=== PATIENT | female | born 1965 | race Caucasian/White ===

== ENCOUNTER 2017-08-28 07:28 | Emergency (ER) | payer BC, OTHER ==
[2017-08-28 07:47] VITALS: BP 143/71
--- NOTE | 2017-08-28 08:53 | RAD ---
INDICATION: Left rib injury. TECHNIQUE: 4 views of the left ribs were obtained. FINDINGS: There are nondisplaced fractures of the fifth through seventh anterolateral left ribs. IMPRESSION: NONDISPLACED FRACTURE OF THE LEFT FIFTH THROUGH SEVENTH RIBS.
--- NOTE | 2017-08-28 08:55 | RAD ---
INDICATION: Chest and rib pain COMPARISON: Chest x-ray April 11, 2015 TECHNIQUE: PA and lateral dual-energy views were obtained. FINDINGS: Bones/Soft Tissues: There are no acute bony findings on the chest radiograph. Please refer also to detailed rib series. Cardiomediastinal: The cardiomediastinal silhouette is normal. Lungs: There are no infiltrates. Pleura: There are no pleural effusions. Other: None IMPRESSION: NO PNEUMOTHORAX. LUNGS CLEAR. REFER ALSO TO DETAILED RIB SERIES.
--- NOTE | 2017-10-02 09:20 | UC ---
Vipin Handley Stephanie, scribed for Antonieta Gill MD on 08/28/17 at 0808 . General HPI - HPI Summary HPI Summary: The pt is a 51 y/o F presenting to with c/o L sided rib pain that began on s/p fall. She states she became dizzy and fell and landed on her ribs. The pt fell again 08/25/17. She denies LOC, neck trauma, hematuria, head trauma, urinary symptoms, rash, ear pain and palpitations. She states she has not had a BM in a couple of days. - History of Current Complaint Chief Complaint: UCTrauma Stated Complaint: SIDE INJURY Time Seen by Provider: 08/28/17 07:54 Hx Obtained From: Patient Onset/Duration: Sudden Onset, Lasting Weeks - 1.5, Still Present Timing: Constant Current Severity: Moderate Pain Intensity: 7 Associated Signs & Symptoms: Positive: Dizziness - Allergy/Home Medications Allergies/Adverse Reactions: Allergies Allergy/AdvReac Type Severity Reaction Status Date / Time No Known Allergies Allergy Verified 08/28/17 07:37 Home Medications: Home Medications Ibuprofen TAB* [Advil TAB*] 800 mg PO Q8H PRN 08/28/17 [History Confirmed ] Lisinopril TAB* [Prinivil TAB*] 10 mg PO DAILY 08/28/17 [History Confirmed 08/28] Varenicline Tartrate [Chantix] 1 mg PO DAILY 08/28/17 [History Confirmed ] PMH/Surg Hx/FS Hx/Imm Hx Previously Healthy: No Cardiovascular History: Hypertension - Surgical History Surgical History: Yes Surgery Procedure, Year, and Place: TUBAL LIGATION, COLONOSCOPY - Family History Known Family History: Positive: Cardiac Disease, Diabetes - Social History Occupation: Employed Full-time Lives: With Family Alcohol Use: None Substance Use Type: None Smoking Status (MU): Light Every Day Tobacco Smoker Type: Cigarettes Amount Used/How Often: "a couple of cigs a day" Have You Smoked in the Last Year: Yes - Immunization History Vaccination Up to Date: No Review of Systems Constitutional: Negative Skin: Negative Eyes: Other - see HPI ENT: Negative Respiratory: Negative Cardiovascular: Negative Gastrointestinal: Negative Genitourinary: Negative Motor: Negative Neurovascular: Negative Musculoskeletal: Other: - See HPI Neurological: Other - See HPI Psychological: Negative All Other Systems Reviewed And Are Negative: Yes Physical Exam - Summary Physical Exam Summary: Appearance: Well-Nourished Eye Exam: Normal ENT Exam: Normal Neck: Normal, No adenopathy appreciated Respiratory Exam: Normal, no dyspnea, no tachypnea, normal respiratory rate Chest non-tender, Lungs clear, Normal breath sounds, No respiratory distress Cardiovascular Exam: Normal Cardiovascular: Heart rate regular, good general skin color, good capillary refill RRR, No Murmur, Pulses Normal - sitting up. heart rate correlates w left radial pulse, Brisk Capillary Refill Abdominal Exam: Normal Abdomen Description: Nontender, No Organomegaly, Soft Bowel Sounds: Present Musculoskeletal Exam: Strength Intact, no CVA tenderness, L posterior and L anterior diffuse rib tenderness Neurological Exam: Normal: nonfocal, grossly intact Psychological Exam: Normal: conversing easily and appropriately Skin Exam: Normal: no visible or reported rash Triage Information Reviewed: Yes Vital Signs: Initial Vital Signs Temp 97.3 F 08/28/17 07:39 Pulse 68 08/28/17 07:39 Resp 18 08/28/17 07:39 BP 143/71 08/28/17 07:39 Pulse Ox 95 08/28/17 07:39 Vital Signs Reviewed: Yes Diagnostics - Radiology Ribs XRay Xray Interpretation: Positive (See Comments) Radiology Interpretation Completed By: Radiologist - NONDISPLACED FRACTURE OF THE LEFT FIFTH THROUGH SEVENTH RIBS. physician has reviewed this report. CXR Xray Interpretation: No Acute Changes Radiology Interpretation Completed By: Radiologist - NO PNEUMOTHORAX. LUNGS CLEAR. REFER ALSO TO DETAILED RIB SERIES. physician has reviewed this report. Re-Evaluation - Re-Evaluation First Eval Re-Evaluation Time: 09:17 Change: Unchanged - physician discussed the results of imaging with the pt and encouraged the pt to go to the ED for further evaluation. The pt declines going to the ED for further workup. Course/Dx - Course Course Of Treatment: The pt declines EKG and further workup at this time. The pt declines going to the ED for further workup. Reviewed CXR, L rib xrays with pt. Incentive spirometer offered, she declines. She reports that she is aware of the importance of frequent deep breaths, and has been adhering to this. Work note offered, she will accept work note for light duty but not for time off work. I implored Ms. Ram to go to the ED for further evaluation and management, but she declines. She agrees to see PCP this week. I offered and encouraged further ancillary studies here, including EKG, blood work, but this too she declined. 09:48 D/w Dr. Lea Yuen, will f/u in office. iSTOP reference number: [id number]. Narc talk unremarkable - Differential Dx - Multi-Symptom Provider Diagnoses: Multiple rib fractures, L 5-7. Discharge - Sign-Out/Discharge Documenting (check all that apply): Patient Departure - Discharge Plan Condition: Stable Disposition: HOME Prescriptions: HYDROcodone/ACETAMIN 5-325 MG* [[place] 5-325 TAB*] 2 tab PO Q6H PRN #12 tab MDD 6 PRN Reason: Pain Ibuprofen TAB* [Motrin TAB* 600 MG] 600 mg PO Q8H PRN #30 tab PRN Reason: Pain Patient Education Materials: Rib Fracture (ED), Dizziness (ED) Forms: *Work Release Referrals: Ian Yuen MD [Primary Care Provider] - 2 Weeks Additional Instructions: Please follow up with your primary care provider THIS WEEK. It is VERY IMPORTANT that you see your doctor about your recent general symptoms , in addition to your rib fractures. Please go to the Emergency Department for ANY problems. Seek medical attention for worse or new problems in the meantime. - Billing Disposition and Condition Condition: STABLE Disposition: Home The documentation as recorded by the Vipin love Stephanie accurately reflects the service I personally performed and the decisions made by me, Antonieta Gill MD.
== END 2017-08-28 09:37 | disposition home or self-care (01) ==
LOC: UCEAST 07:28
DX: S22.42XA Multiple fractures of ribs, left side, initial encounter for closed fracture (principal); W19.XXXA Unspecified fall, initial encounter; Y93.9 Activity, unspecified; Y92.9 Unspecified place or not applicable; R42 Dizziness and giddiness; I10 Essential (primary) hypertension; F17.210 Nicotine dependence, cigarettes, uncomplicated
CPT/HCPCS: 71046; 99212; G0463